=== PATIENT | male | born 1990 ===

== ENCOUNTER 2018-03-25 02:22 | Emergency (ER) | payer OTHER ==
[2018-03-25 02:32] VITALS: O2SAT 99
[2018-03-25] MEDS ORDERED: Tetanus/Diphtheria Toxoids 0.5 ml Syringe IM ONE (03:28)
--- NOTE | 2018-03-25 05:02 | C.PDOC ---
History Of Present Illness 27yo male, brought to ER by EMS for evaluation of right hand injury s/p fall. Patient reports pain and swelling to the dorsum of his right hand; patient is right hand dominant. He denies any weakness, numbness, tingling to his hand; also denies any head injury or loss of consciousness. Patient also denies any head injuries due to the fall. NO other medical complaints. PMD: Allan Maldonado Time Seen by Provider: 03/25/18 03:12 Chief Complaint (Nursing): Finger,Hand,&Wrist History Per: Patient History/Exam Limitations: no limitations Quality: "Pain" Past Medical History Reviewed: Historical Data, Nursing Documentation, Vital Signs Vital Signs: Last Vital Signs Temp 97 F L 03/25/18 05:12 Pulse 82 03/25/18 05:12 Resp 20 03/25/18 05:12 BP 120/71 03/25/18 05:12 Pulse Ox 99 03/25/18 05:34 - Medical History PMH: No Chronic Diseases Surgical History: No Surg Hx Family History: States: No Known Family Hx - Social History Hx Alcohol Use: Yes Hx Substance Use: Yes (MARIJUANA) - Immunization History Hx Tetanus Toxoid Vaccination: No Hx Influenza Vaccination: No Hx Pneumococcal Vaccination: No Review Of Systems Except As Marked, All Systems Reviewed And Found Negative. Gastrointestinal: Negative for: Vomiting Musculoskeletal: Positive for: Hand Pain (right) Neurological: Negative for: Weakness, Numbness, Headache, Other (loss of consciousness) Physical Exam - Physical Exam Appears: Non-toxic Skin: Normal Color, Warm, Dry Head: Atraumatic, Normacephalic Eye(s): bilateral: Normal Inspection Neck: Supple Chest: Symmetrical Cardiovascular: Rhythm Regular Respiratory: Normal Breath Sounds Extremity: Tenderness (swelling, ecchymosis and tenderness to area of right 4th and 5th metacarpals), No Deformity (+ no obvious deformity noted to right hand) , Other (neurovascularly intact) Pulses: Right Radial: Normal Neurological/Psych: Oriented x3, Normal Speech, Normal Cognition, Normal Motor, Normal Sensation ED Course And Treatment O2 Sat by Pulse Oximetry: 99 (RA) Pulse Ox Interpretation: Normal Progress Note: TDAP booster given. XR Right hand ordered. 0415 XR Right hand reviewed and shows comminuted fracture to the base of 4th and 5th metacarpal. Case discussed with Dr. Germain who reviewed XR and suggest an ulnar gutter splint. Ulnar gutter Splint placed by CP and checked by me. Upon re-examination , cap refill is < 2 seconds, and distal neurovascular sensations are intact. Patient given instructions to follow up with hand specialist without fail. Stable for discharge home. Disposition - Disposition Referrals: Young Hurt MD [Staff Provider] - Disposition: HOME/ ROUTINE Disposition Time: 05:01 Condition: IMPROVED Additional Instructions: Follow up with Hand specialist within 2-3 days. Return to ED if feel worse. Prescriptions: traMADol [Ultram] 50 mg PO Q6 #20 tab Instructions: Hand Fracture (DC) Forms: [employer] (German) - Clinical Impression Clinical Impression: Hand fracture, right - PA / CHANGE OF ADDRESS CLERK / Resident Statement MD/DO has reviewed & agrees with the documentation as recorded. - Scribe Statement The provider has reviewed the documentation as recorded by the Scribe (Belgica Shay) Provider Attestation: All medical record entries made by the Scribe were at my direction and personally dictated by me. I have reviewed the chart and agree that the record accurately reflects my personal performance of the history, physical exam, medical decision making, and the department course for this patient. I have also personally directed, reviewed, and agree with the discharge instructions and disposition.
[2018-03-25 05:14] VITALS: BP 120/71; PULSE 82; RESP 20; TEMP 97
--- NOTE | 2018-03-25 12:05 | RAD ---
PROCEDURE: Right Hand Radiographs. HISTORY: fall COMPARISON: None. FINDINGS: BONES: Comminuted boxer's fractures which appear articular at the bilateral proximal 4th and 5th metacarpal bones without dislocation or subluxation evident. The major fracture fragment at the distal 4th metacarpal bone appears distracted in the volar direction. JOINTS: As above. SOFT TISSUES: Prominent soft tissue edema surrounds the fracture sites of the 4th and 5th metacarpal bones. OTHER FINDINGS: None. IMPRESSION: Comminuted articular fractures 4th and 5th proximal metacarpal bones.
== END 2018-03-25 05:13 | disposition home or self-care (01) ==
LOC: C.ER 02:22
DX: S62.394A Other fracture of fourth metacarpal bone, right hand, initial encounter for closed fracture (principal); S62.396A Other fracture of fifth metacarpal bone, right hand, initial encounter for closed fracture; W19.XXXA Unspecified fall, initial encounter; Y92.9 Unspecified place or not applicable

== ENCOUNTER 2018-03-25 20:01 | Emergency (ER) | payer OTHER ==
[2018-03-25 20:14] VITALS: BP 126/87; PULSE 80; TEMP 98.2; O2SAT 98
--- NOTE | 2018-03-25 20:26 | C.PDOC ---
History Of Present Illness Patieny c/o pain in the right hand. Patient sts he was seen here in the [employer] [facility] after he fell and injured his right hand. Patient was diagnosed with comminuted fracture of the 4th and 5th metacarpal bones, was placed in Ulna gutter splint and was d/c home on Tramadol. patient c/o severe pain in the injured hand that is not responding to Tramadol. Time Seen by Provider: 03/25/18 20:14 Chief Complaint (Nursing): Finger,Hand,&Wrist History Per: Patient History/Exam Limitations: no limitations Current Symptoms Are (Timing): Worse Severity: Severe Pain Scale Rating Of: 10 Past Medical History Reviewed: Historical Data, Nursing Documentation, Vital Signs Vital Signs: Last Vital Signs Temp 98.2 F 03/25/18 20:02 Pulse 80 03/25/18 20:02 Resp 20 03/25/18 20:52 BP 126/87 03/25/18 20:02 Pulse Ox 98 03/25/18 20:31 - Medical History PMH: No Chronic Diseases, Fractures (rt hand) Family History: States: No Known Family Hx - Social History Hx Alcohol Use: Yes Hx Substance Use: No - Immunization History Hx Tetanus Toxoid Vaccination: No Hx Influenza Vaccination: No Hx Pneumococcal Vaccination: No Review Of Systems Except As Marked, All Systems Reviewed And Found Negative. Physical Exam - Physical Exam Appears: Well, Non-toxic, No Acute Distress Skin: Normal Color, Warm Head: Atraumatic, Normacephalic Eye(s): bilateral: Normal Inspection Extremity: Other (Right hand with ulna gutter splint and arm sling, fingers are warm, no swelling of fingers observed, patient is able to move his fingers with minimal discomfort.) Neurological/Psych: Oriented x3, Normal Speech, Normal Cognition ED Course And Treatment O2 Sat by Pulse Oximetry: 98 Progress Note: Patient treated in ED with percocet po. Case was d/w Hand specialist who agreed with the plan and instructed patient to follow up in his office on Tuesday, March 31, 2018. Disposition - Disposition Referrals: Young Hurt MD [Staff Provider] - Ramos Singh III, MD [Staff Provider] - [facility] [Outside] [facility] [Outside] [facility] [Outside] Disposition: HOME/ ROUTINE Disposition Time: 20:28 Condition: STABLE Additional Instructions: Follow up [facility] hand specialist within 1-2 days. Return to ED if feel worse. Prescriptions: oxyCODONE/Acetaminophen [Percocet 5/325 mg Tab] 1 tab PO QID PRN #20 tab PRN Reason: Pain Instructions: Boxer's Fracture (DC) Forms: [employer] (Emirati) - Clinical Impression Clinical Impression: Hand fracture, right, Intractable pain
[2018-03-25] MEDS ORDERED: Oxycodone/Acetaminophen 5/325 mg Tab PO STA (20:31)
[2018-03-25] MEDS ORDERED: Oxycodone/Acetaminophen 5/325 mg Tab ONE (20:35)
[2018-03-25 20:53] VITALS: RESP 20
== END 2018-03-25 20:52 | disposition home or self-care (01) ==
LOC: C.ER 20:01
DX: S62.394D Other fracture of fourth metacarpal bone, right hand, subsequent encounter for fracture with routine healing (principal); S62.396D Other fracture of fifth metacarpal bone, right hand, subsequent encounter for fracture with routine healing; W19.XXXD Unspecified fall, subsequent encounter

== ENCOUNTER 2018-04-19 10:02 | Emergency (ER) | payer OTHER ==
[2018-04-19 10:10] VITALS: TEMP 97.3
[2018-04-19 11:32] VITALS: BP 121/83; PULSE 68; RESP 18; O2SAT 98
--- NOTE | 2018-04-19 13:38 | C.PDOC ---
History Of Present Illness 27 y/o male presents to the ER complaining of right wrist pain. Patient states that he was diagnosed with a right hand fracture 1 month ago and he splint placed at the time. Patient reports that the splint became wet yesterday and the splint started to constrict his hand. He is requesting for a new splint to be placed. He notes that he has to follow up with an orthopedist and he has an appointment in the near future. Denies having new trauma. Chief Complaint (Nursing): Finger,Hand,&Wrist History Per: Patient History/Exam Limitations: no limitations Onset/Duration Of Symptoms: Days Current Symptoms Are (Timing): Still Present Severity: Moderate Past Medical History Reviewed: Historical Data, Nursing Documentation, Vital Signs Vital Signs: Last Vital Signs Temp 97.3 F L 04/19/18 10:04 Pulse 68 04/19/18 11:31 Resp 18 04/19/18 11:31 BP 121/83 04/19/18 11:31 Pulse Ox 98 04/19/18 14:03 - Medical History PMH: Fractures (rt hand) Surgical History: No Surg Hx Family History: States: No Known Family Hx - Social History Hx Alcohol Use: Yes Hx Substance Use: No - Immunization History Hx Tetanus Toxoid Vaccination: No Hx Influenza Vaccination: No Hx Pneumococcal Vaccination: No Review Of Systems Except As Marked, All Systems Reviewed And Found Negative. Musculoskeletal: Positive for: Other (right wrist pain) Physical Exam - Physical Exam Appears: Non-toxic, No Acute Distress Skin: Normal Color, Warm, Dry, Ecchymosis (ecchymosis to palmar aspect of right hand) Head: Atraumatic, Normacephalic Eye(s): bilateral: Normal Inspection Nose: Normal Oral Mucosa: Moist Neck: Supple Chest: Symmetrical Cardiovascular: Rhythm Regular Respiratory: Normal Breath Sounds, No Rales, No Rhonchi, No Wheezing Extremity: Normal ROM, Tenderness (tenderness to dorsal aspect over 4th metacarpal of right hand), Capillary Refill (< 2 seconds) Pulses: Left Radial: Normal, Right Radial: Normal Neurological/Psych: Oriented x3, Normal Speech ED Course And Treatment O2 Sat by Pulse Oximetry: 98 (RA) Pulse Ox Interpretation: Normal Medical Decision Making Medical Decision Making: Plan: --Motrin PO -- X-Ray - Right Hand Updates: New ulnar gutter splint has been placed.Patient has been discharged and instructed to follow up with orthopedist in 2-3 days. Disposition - Disposition Referrals: [facility] [Outside] [facility] [Outside] Disposition: HOME/ ROUTINE Disposition Time: 10:50 Condition: GOOD Additional Instructions: DANEIL HAYS, thank you for letting us take care of you today. Your provider was Nikolai Alba DO and you were treated for RT WRIST PAIN. The emergency medical care you received today was directed at your acute symptoms. If you were prescribed any medication, please fill it and take as directed. It may take several days for your symptoms to resolve. Return to the Emergency Department if your symptoms worsen, do not improve, or if you have any other problems. Please contact your doctor or call one of the physicians/clinics you have been referred to that are listed on the Patient Visit Information form that is included in your discharge packet. Bring any paperwork you were given at discharge with you along with any medications you are taking to your follow up visit. Our treatment cannot replace ongoing medical care by a primary care provider outside of the emergency department. Thank you for allowing the [facility] team to be part of your care today. Follow up with your orthopedic doctor in 2-3 days for re-evaluation and further management. Instructions: Cast Care, Hand Fracture (DC) Forms: [employer] (Icelandic) - Clinical Impression Clinical Impression: Hand fracture, right - Scribe Statement The provider has reviewed the documentation as recorded by the Samaraibjorge Flood Provider Attestation: All medical record entries made by the aSmaraibjorge were at my direction and personally dictated by me. I have reviewed the chart and agree that the record accurately reflects my personal performance of the history, physical exam, medical decision making, and the department course for this patient. I have also personally directed, reviewed, and agree with the discharge instructions and disposition.
--- NOTE | 2018-04-19 14:40 | RAD ---
PROCEDURE: Right Hand Radiographs. HISTORY: h/o fx 4 weeks ago COMPARISON: Comparison made with prior radiographs right hand 03/25/2018 FINDINGS: BONES: The current study re- demonstrates comminuted intra-articular fractures of the bases 4th and 5th metacarpals. Persistent dorsal displacement proximal aspect distal fracture fragment 4th metacarpal. There appears be some development of callus formation consistent with interval healing JOINTS: Normal. No osteoarthritic changes. SOFT TISSUES: Normal. OTHER FINDINGS: None. IMPRESSION: Demonstrated are intra-articular fractures of the bases of the 4th and 5th metacarpals with interval development of callus formation. . There is persistent dorsal displacement proximal aspect distal fracture fragment 4th metacarpal
== END 2018-04-19 11:32 | disposition home or self-care (01) ==
LOC: C.ER 10:02
DX: S62.91XG Unspecified fracture of right hand, subsequent encounter for fracture with delayed healing (principal); X58.XXXD Exposure to other specified factors, subsequent encounter